=== PATIENT | female | born 2000 | race African-American/Black ===

== ENCOUNTER 2022-04-17 19:24 | Emergency (ER) | payer OTHER, SELFPAY ==
[2022-04-17 20:43] LABS: SARS-CoV-2 NAA Rapid Test Not Detected (NotDetected)
== END 2022-04-17 21:03 | disposition left against medical advice (07) ==
LOC: CSHERS 19:24
DX: Z53.21 Procedure and treatment not carried out due to patient leaving prior to being seen by health care provider (principal)